=== PATIENT | male | born 1985 | race Hispanic/Latino ===

== ENCOUNTER → 2018-03-27 | Outpatient (CLI) | payer OTHER ==
--- NOTE | 2018-03-27 17:44 | Diagnostic Imaging Report ---
PROCEDURE:TESTICULAR DOPPLER ULTRASOUND COMPARISON:None. INDICATIONS:TESTE PAIN TECHNIQUE: Ramirez-scale and color doppler images of the testicles and scrotal contents were obtained. Duplex imaging with spectral waveform analysis was performed of the testicular arteries and veins. FINDINGS: Please see same day testicular ultrasound for combined dictation. CONCLUSION: Please see same day testicular ultrasound for combined dictation. Dictated by: Russel Perales M.D. on 03/27/2018 at 17:46 Electronically approved by: Russel Perales M.D. on 03/27/2018 at 17:46
--- NOTE | 2018-03-27 17:47 | Diagnostic Imaging Report ---
PROCEDURE:TESTICULAR ULTRASOUND and Dopplers COMPARISON:None. INDICATIONS:TESTE PAIN TECHNIQUE: Ramirez-scale and color doppler images of the testicles and scrotal contents were obtained. Duplex imaging with spectral waveform analysis was performed of the testicular arteries and veins. FINDINGS: RIGHT SCROTUM: Testicle: 4.0 x 2.0 x 3.0 cm. Normal echo texture. Epididymal head: 1.0 x 0.9 x 0.8 cm. Hydrocele: None Varicocele: None LEFT SCROTUM: Testicle: 3.6 x 2.2 x 3.1 cm. Normal echo texture. Epididymal head: 1.0 x 0.9 x 0.8 cm Hydrocele: None Varicocele: None Normal arterial and venous waveforms to bilateral testes. No hernia identified. CONCLUSION: Normal testicular exam. Dictated by: Russel Perales M.D. on 03/27/2018 at 17:48 Electronically approved by: Russel Perales M.D. on 03/27/2018 at 17:48
== END ==
LOC: US 17:04
PROVIDERS: ATTEND Urology
DX: N50.819 Testicular pain, unspecified (principal); G89.29 Other chronic pain
CPT/HCPCS: 76870; 93976